=== PATIENT | female | born 1970 | race Caucasian/White ===

== ENCOUNTER → 2021-12-09 | Outpatient (CLI) | payer BC | LOC: KOH-I 13:44 | DX: S92.911D Unspecified fracture of right toe(s), subsequent encounter for fracture with routine healing (principal) | CPT/HCPCS: 73630 ==

== ENCOUNTER → 2022-01-06 | Outpatient (CLI) | payer BC | LOC: KOH-I 11:29 | DX: S92.511D Displaced fracture of proximal phalanx of right lesser toe(s), subsequent encounter for fracture with routine healing (principal) | CPT/HCPCS: 73630 ==